=== PATIENT | male | born 1965 | race Caucasian/White ===

== ENCOUNTER 2018-12-17 18:24 | Inpatient (IN) | payer MEDICAID, OTHER ==
[2018-12-17] MEDS: morphine 4 MG/ML VIAL IV (18:29)
[2018-12-17] MEDS: NITROGLYCERIN 50 MG/D5W (PMX) 250 ML IV (18:29)
[2018-12-17 18:58] LABS: ADD MAN DIFF? NO
[2018-12-17 19:00] LABS: HEMOGLOBIN 12.2 g/dl (14.0-18.0); MEAN CORPUSCULAR HEMOGLOBIN 29.8 pg (29.0-33.0); MEAN CORPUSCULAR VOLUME 90.5 fl (82.0-101.0); RED BLOOD COUNT 4.09 10^6/ul (4.70-6.10); RED CELL DISTRIBUTION WIDTH 12.6 % (11.5-14.5)
[2018-12-17 19:00] LABS: WHITE BLOOD COUNT 10.1 10^3/ul (4.8-10.8)
[2018-12-17 19:01] LABS: BASOPHIL # 0.1 10^3/ul (0.0-0.1); BASOPHILS % 0.5 % (0.0-2.0); EOSINOPHILS # 0.1 10^3/ul (0.0-0.5); EOSINOPHILS % 1.2 % (0.0-7.0); LYMPHOCYTES # 1.2 10^3/ul (0.8-2.9); MEAN PLATELET VOLUME 11.1 fl (7.4-10.4); MONOCYTE # 0.6 10^3/ul (0.3-0.9); NEUTROPHILS % 79.8 % (39.0-77.0); PLATELET COUNT 207 10^3/UL (140-415)
[2018-12-17] MEDS: FUROSEMIDE 40 MG INJ IV (19:01)
[2018-12-17] MEDS: ONDANSETRON 4 MG INJ IV (19:02)
[2018-12-17 19:15] LABS: INR 0.99; PROTIME 13.2 Sec (11.9-14.9)
[2018-12-17 19:16] LABS: PARTIAL THROMBOPLASTIN TIME 27.9 Sec (23.0-35.0)
[2018-12-17 19:22] LABS: ANION GAP 14 (5-13); BLOOD UREA NITROGEN 15 mg/dl (7-20); CALCIUM 9.8 mg/dl (8.4-10.2); CARBON DIOXIDE 24 mmol/L (21-31); CHLORIDE 100 mmol/L (97-110); CREATININE 0.69 mg/dl (0.61-1.24); Estimated GFR > 60 mL/min (>60); GLUCOSE 168 mg/dl (70-220); POTASSIUM 4.5 mmol/L (3.5-5.1); SODIUM 138 mmol/L (135-144)
[2018-12-17 19:31] LABS: B-TYPE NATRIURETIC PEPTIDE 582 PG/ML (0-125)
[2018-12-17 19:35] LABS: TROPONIN-I < 0.012 ng/ml (0.000-0.120)
[2018-12-17] MEDS: ASPIRIN 81 MG TAB PO (19:48)
[2018-12-17 20:32] LABS: AADO2 Arterial 75.2 mmHg (7.0-24.0); Allen Test ACCEPTAB; Arterial Base Excess 1.7 mmol/L (-3.0-3); Arterial Blood Gas Oxygen Sat 98.6 mmHG (95.0-98.0); Arterial COHb 0 % (0.0-3.0); Arterial Fraction of Oxyhgb 98.4 % (93.0-99.0); Arterial HCO3 26.4 mmol/L (22.0-26.0); Arterial MetHb 0.2 % (0.0-1.5); Arterial pCO2 41.9 mmhg (35-45); Blood Gas IEPAP 15/5; MODE MASK - BIPAP; Site Left Radial
[2018-12-17] MEDS ORDERED: ACETAMINOPHEN 325 MG TAB PO ×2 (21:00)
[2018-12-17] MEDS ORDERED: BISACODYL (EC) 5 MG TAB PO (21:00)
[2018-12-17] MEDS ORDERED: NITROGLYCERIN (SL) 0.4 MG TAB SL (21:00)
[2018-12-17] MEDS ORDERED: ONDANSETRON 4 MG INJ IV ×2 (21:00)
[2018-12-17] MEDS ORDERED: NACL 0.9% 3 ML SYG IV (21:00)
[2018-12-17] MEDS ORDERED: DOCUSATE SODIUM 100 MG CAP PO (21:00)
[2018-12-18] MEDS: ENOXAPARIN 40 MG/0.4 ML SYG SC (00:51)
[2018-12-18 01:08] LABS: CREATINE KINASE 181 IU/L (23-200)
[2018-12-18 01:20] LABS: CK INDEX 2.7
[2018-12-18 01:21] LABS: CK-MB 4.96 ng/ml (0.0-2.4)
[2018-12-18 01:24] LABS: TROPONIN-I 0.998 ng/ml (0.000-0.120)
[2018-12-18] MEDS: ACCU-CHEK XX (02:00)
[2018-12-18] MEDS ORDERED: ENOXAPARIN 60 MG/0.6 ML SYG SC ×2 (02:00→14:00)
[2018-12-18] MEDS ORDERED: ENOXAPARIN 100 MG/ML SYG SC (02:00)
[2018-12-18] MEDS ORDERED: GLUCOSE GEL 15 GRAM TUBE BUCCAL (02:30)
[2018-12-18] MEDS ORDERED: DEXTROSE 50% 50 ML SYRINGE IV ×2 (02:30)
[2018-12-18] MEDS ORDERED: GLUCAGON 1 MG INJ IM (02:30)
[2018-12-18] MEDS ORDERED: GLUCOSE GEL 15 GRAM TUBE PO ×2 (02:30)
[2018-12-18] MEDS: ENOXAPARIN 80 MG/0.8 ML SYG SC (03:08)
[2018-12-18 07:01] LABS: ADD MAN DIFF? NO
[2018-12-18 07:06] LABS: BASOPHIL # 0.1 10^3/ul (0.0-0.1); BASOPHILS % 0.9 % (0.0-2.0); EOSINOPHILS % 0.7 % (0.0-7.0); HEMATOCRIT 34.2 % (42.0-52.0); HEMOGLOBIN 11.4 g/dl (14.0-18.0); LYMPHOCYTES # 1.3 10^3/ul (0.8-2.9); LYMPHOCYTES % 23.1 % (15.0-51.0); MEAN CORPUSCULAR HEMOGLOBIN 29.9 pg (29.0-33.0); MEAN CORPUSCULAR HGB CONC 33.3 g/dl (32.0-37.0); MEAN CORPUSCULAR VOLUME 89.8 fl (82.0-101.0); MEAN PLATELET VOLUME 11.3 fl (7.4-10.4); MONOCYTE # 0.5 10^3/ul (0.3-0.9); MONOCYTES % 8.2 % (0.0-11.0); NEUTROPHIL # 3.7 10^3/ul (1.6-7.5); NEUTROPHILS % 66.9 % (39.0-77.0); PLATELET COUNT 194 10^3/UL (140-415); RED BLOOD COUNT 3.81 10^6/ul (4.70-6.10); RED CELL DISTRIBUTION WIDTH 12.6 % (11.5-14.5)
[2018-12-18 07:06] LABS: WHITE BLOOD COUNT 5.5 10^3/ul (4.8-10.8)
[2018-12-18 07:37] LABS: CREATINE KINASE 173 IU/L (23-200)
[2018-12-18 07:44] LABS: ALANINE AMINOTRANSFERASE 20 IU/L (13-69); ALBUMIN 4.1 g/dl (3.3-4.9); ALBUMIN/GLOBULIN RATIO 1.36; ALKALINE PHOSPHATASE 59 IU/L (42-121); ANION GAP 10 (5-13); ASPARTATE AMINO TRANSFERASE 27 IU/L (15-46); BILIRUBIN,INDIRECT 0.4 mg/dl (0-1.1); BILIRUBIN,TOTAL 0.4 mg/dl (0.2-1.3); BLOOD UREA NITROGEN 13 mg/dl (7-20); CALCIUM 9.8 mg/dl (8.4-10.2); CARBON DIOXIDE 27 mmol/L (21-31); CHLORIDE 102 mmol/L (97-110); CHOL/HDL RATIO 2.9 RATIO; CHOLESTEROL 90 mg/dl (100-200); CREATININE 0.66 mg/dl (0.61-1.24); Estimated GFR > 60 mL/min (>60); GLUCOSE 116 mg/dl (70-220); HDL CHOLESTEROL 31 mg/dl (28-71); LDL CHOLESTEROL,CALCULATED 42 mg/dl; MAGNESIUM 1.7 mg/dl (1.7-2.5); POTASSIUM 3.8 mmol/L (3.5-5.1); SODIUM 139 mmol/L (135-144); TOTAL PROTEIN 7.1 g/dl (6.1-8.1); TRIGLYCERIDES 85 mg/dl (0-149)
[2018-12-18 07:45] LABS: CK INDEX 2.6
[2018-12-18 07:52] LABS: CK-MB 4.46 ng/ml (0.0-2.4)
[2018-12-18] MEDS: INSULIN ASPART [NOVOLOG] 3 ML PEN SC ×4 (07:55→20:57)
[2018-12-18 08:46] LABS: HEMOGLOBIN A1C 6.2 % (0-5.9)
[2018-12-18] MEDS ORDERED: VALSARTAN 160 MG PO (09:00)
[2018-12-18] MEDS: AMLODIPINE 10 MG TAB PO (09:00)
[2018-12-18] MEDS: RANOLAZINE (SR) 500 MG TAB PO ×2 (09:46→21:03)
[2018-12-18] MEDS: ASPIRIN (EC) 81 MG TAB PO (09:46)
[2018-12-18] MEDS: CLOPIDOGREL 75 MG TAB PO ×2 (10:33→21:04)
[2018-12-18] MEDS: LOSARTAN 50 MG TAB PO (12:00)
[2018-12-18] MEDS ORDERED: VERAPAMIL 5 MG INJ ×2 (17:02→17:57)
[2018-12-18] MEDS ORDERED: IODIXANOL LOCM 100 ML BTL ×3 (17:02→18:14)
[2018-12-18] MEDS ORDERED: LIDOCAINE 1% (MDV) 20 ML INJ (17:02)
[2018-12-18] MEDS ORDERED: MIDAZOLAM 1 MG/ML 2 ML INJ ×2 (17:02→17:13)
[2018-12-18] MEDS ORDERED: HEPARIN 1000 UNITS/ML 10 ML INJ (17:02)
[2018-12-18] MEDS ORDERED: NITROGLYCERIN (IC) 100 MCG/ML INJ (17:14)
[2018-12-18] MEDS ORDERED: FENTAnyl 50 MCG/ML VIAL (17:14)
[2018-12-18] MEDS ORDERED: IOHEXOL 350MG/ML 50 ML BTL (18:15)
[2018-12-18] MEDS ORDERED: CLOPIDOGREL 300 MG TAB (18:26)
[2018-12-18] MEDS: SOD CHLORIDE 0.9% 1,000 ML IV (19:57)
[2018-12-18] MEDS: ATORVASTATIN 80 MG TAB PO (21:03)
[2018-12-19] MEDS: ACCU-CHEK XX (01:28)
[2018-12-19] MEDS: INSULIN ASPART [NOVOLOG] 3 ML PEN SC ×5 (07:47→21:12)
[2018-12-19 08:25] LABS: ADD MAN DIFF? NO
[2018-12-19 08:28] LABS: BASOPHIL # 0.1 10^3/ul (0.0-0.1); BASOPHILS % 1.1 % (0.0-2.0); EOSINOPHILS # 0.1 10^3/ul (0.0-0.5); EOSINOPHILS % 1.3 % (0.0-7.0); HEMATOCRIT 32.6 % (42.0-52.0); HEMOGLOBIN 10.7 g/dl (14.0-18.0); LYMPHOCYTES # 1.1 10^3/ul (0.8-2.9); MEAN CORPUSCULAR HEMOGLOBIN 29.9 pg (29.0-33.0); MEAN CORPUSCULAR HGB CONC 32.8 g/dl (32.0-37.0); MEAN CORPUSCULAR VOLUME 91.1 fl (82.0-101.0); MEAN PLATELET VOLUME 11.1 fl (7.4-10.4); MONOCYTE # 0.5 10^3/ul (0.3-0.9); MONOCYTES % 9.8 % (0.0-11.0); NEUTROPHIL # 3.8 10^3/ul (1.6-7.5); NEUTROPHILS % 68.4 % (39.0-77.0); PLATELET COUNT 165 10^3/UL (140-415); RED BLOOD COUNT 3.58 10^6/ul (4.70-6.10); RED CELL DISTRIBUTION WIDTH 12.8 % (11.5-14.5)
[2018-12-19 08:28] LABS: WHITE BLOOD COUNT 5.5 10^3/ul (4.8-10.8)
[2018-12-19] MEDS: LOSARTAN 50 MG TAB PO (08:29)
[2018-12-19] MEDS: ASPIRIN (EC) 81 MG TAB PO (08:29)
[2018-12-19] MEDS: CLOPIDOGREL 75 MG TAB PO ×2 (08:30→21:06)
[2018-12-19] MEDS: AMLODIPINE 10 MG TAB PO (08:30)
[2018-12-19] MEDS: RANOLAZINE (SR) 500 MG TAB PO ×2 (08:30→21:06)
[2018-12-19 09:02] LABS: ANION GAP 8 (5-13); BLOOD UREA NITROGEN 12 mg/dl (7-20); CALCIUM 9.1 mg/dl (8.4-10.2); CARBON DIOXIDE 26 mmol/L (21-31); CHLORIDE 106 mmol/L (97-110); CREATININE 0.69 mg/dl (0.61-1.24); Estimated GFR > 60 mL/min (>60); GLUCOSE 154 mg/dl (70-220); POTASSIUM 4.1 mmol/L (3.5-5.1); SODIUM 140 mmol/L (135-144)
[2018-12-19] MEDS: ATORVASTATIN 80 MG TAB PO (21:06)
[2018-12-20] MEDS: ACCU-CHEK XX (02:00)
[2018-12-20 06:12] LABS: ADD MAN DIFF? NO
[2018-12-20 06:14] LABS: BASOPHILS % 0.6 % (0.0-2.0); EOSINOPHILS # 0.1 10^3/ul (0.0-0.5); HEMATOCRIT 32.8 % (42.0-52.0); LYMPHOCYTES # 1.3 10^3/ul (0.8-2.9); LYMPHOCYTES % 20.9 % (15.0-51.0); MEAN CORPUSCULAR HEMOGLOBIN 29.8 pg (29.0-33.0); MEAN CORPUSCULAR HGB CONC 33.5 g/dl (32.0-37.0); MEAN CORPUSCULAR VOLUME 88.9 fl (82.0-101.0); MEAN PLATELET VOLUME 10.9 fl (7.4-10.4); MONOCYTE # 0.7 10^3/ul (0.3-0.9); MONOCYTES % 10.7 % (0.0-11.0); NEUTROPHIL # 4.2 10^3/ul (1.6-7.5); NEUTROPHILS % 65.6 % (39.0-77.0); PLATELET COUNT 181 10^3/UL (140-415); RED BLOOD COUNT 3.69 10^6/ul (4.70-6.10); RED CELL DISTRIBUTION WIDTH 12.9 % (11.5-14.5)
[2018-12-20 06:14] LABS: WHITE BLOOD COUNT 6.4 10^3/ul (4.8-10.8)
[2018-12-20 06:59] LABS: B-TYPE NATRIURETIC PEPTIDE 676 PG/ML (0-125)
[2018-12-20 07:05] LABS: ALANINE AMINOTRANSFERASE 15 IU/L (13-69); ALBUMIN 4.2 g/dl (3.3-4.9); ALBUMIN/GLOBULIN RATIO 1.35; ALKALINE PHOSPHATASE 50 IU/L (42-121); ANION GAP 10 (5-13); ASPARTATE AMINO TRANSFERASE 28 IU/L (15-46); BILIRUBIN,INDIRECT 0.4 mg/dl (0-1.1); BILIRUBIN,TOTAL 0.4 mg/dl (0.2-1.3); BLOOD UREA NITROGEN 15 mg/dl (7-20); CALCIUM 9.5 mg/dl (8.4-10.2); CARBON DIOXIDE 24 mmol/L (21-31); CHLORIDE 106 mmol/L (97-110); Estimated GFR > 60 mL/min (>60); GLUCOSE 181 mg/dl (70-220); POTASSIUM 4.2 mmol/L (3.5-5.1); SODIUM 140 mmol/L (135-144); TOTAL PROTEIN 7.3 g/dl (6.1-8.1)
[2018-12-20] MEDS: INSULIN ASPART [NOVOLOG] 3 ML PEN SC ×7 (07:55→21:00)
[2018-12-20] MEDS: ASPIRIN (EC) 81 MG TAB PO (08:36)
[2018-12-20] MEDS: AMLODIPINE 5 MG TAB PO (08:37)
[2018-12-20] MEDS: LOSARTAN 50 MG TAB PO (08:37)
[2018-12-20] MEDS: CLOPIDOGREL 75 MG TAB PO ×2 (08:38→21:17)
[2018-12-20] MEDS: RANOLAZINE (SR) 500 MG TAB PO ×2 (08:38→21:18)
[2018-12-20] MEDS: INSULIN GLARGINE [LANTus] (100 UNITS/ML) SYG SC (08:47)
[2018-12-20] MEDS: ENOXAPARIN 40 MG/0.4 ML SYG SC (15:32)
[2018-12-20] MEDS: ATORVASTATIN 80 MG TAB PO (21:18)
[2018-12-21] MEDS: ACCU-CHEK XX (02:00)
[2018-12-21 06:26] LABS: ADD MAN DIFF? NO
[2018-12-21 06:29] LABS: BASOPHIL # 0.1 10^3/ul (0.0-0.1); BASOPHILS % 0.8 % (0.0-2.0); EOSINOPHILS # 0.1 10^3/ul (0.0-0.5); EOSINOPHILS % 1.8 % (0.0-7.0); HEMATOCRIT 31.6 % (42.0-52.0); HEMOGLOBIN 10.5 g/dl (14.0-18.0); LYMPHOCYTES # 1.1 10^3/ul (0.8-2.9); LYMPHOCYTES % 18.5 % (15.0-51.0); MEAN CORPUSCULAR HEMOGLOBIN 29.5 pg (29.0-33.0); MEAN CORPUSCULAR HGB CONC 33.2 g/dl (32.0-37.0); MEAN CORPUSCULAR VOLUME 88.8 fl (82.0-101.0); MONOCYTE # 0.6 10^3/ul (0.3-0.9); MONOCYTES % 10.1 % (0.0-11.0); NEUTROPHIL # 4.1 10^3/ul (1.6-7.5); NEUTROPHILS % 68.6 % (39.0-77.0); PLATELET COUNT 170 10^3/UL (140-415); RED BLOOD COUNT 3.56 10^6/ul (4.70-6.10); RED CELL DISTRIBUTION WIDTH 12.8 % (11.5-14.5)
[2018-12-21 06:55] LABS: INR 0.94; PROTIME 12.7 Sec (11.9-14.9)
[2018-12-21 06:57] LABS: CREATINE KINASE 146 IU/L (23-200)
[2018-12-21 07:02] LABS: ALANINE AMINOTRANSFERASE 19 IU/L (13-69); ALBUMIN 3.9 g/dl (3.3-4.9); ALBUMIN/GLOBULIN RATIO 1.34; ALKALINE PHOSPHATASE 50 IU/L (42-121); ANION GAP 10 (5-13); ASPARTATE AMINO TRANSFERASE 43 IU/L (15-46); BILIRUBIN,INDIRECT 0.4 mg/dl (0-1.1); BILIRUBIN,TOTAL 0.4 mg/dl (0.2-1.3); BLOOD UREA NITROGEN 23 mg/dl (7-20); CALCIUM 9.5 mg/dl (8.4-10.2); CARBON DIOXIDE 26 mmol/L (21-31); CHLORIDE 105 mmol/L (97-110); CREATININE 1.21 mg/dl (0.61-1.24); Estimated GFR > 60 mL/min (>60); GLUCOSE 191 mg/dl (70-220); MAGNESIUM 2.1 mg/dl (1.7-2.5); POTASSIUM 4.3 mmol/L (3.5-5.1); SODIUM 141 mmol/L (135-144); TOTAL PROTEIN 6.8 g/dl (6.1-8.1)
[2018-12-21 07:10] LABS: CK INDEX 1.3; CK-MB 1.96 ng/ml (0.0-2.4); TROPONIN-I 0.883 ng/ml (0.000-0.120)
[2018-12-21] MEDS ORDERED: LIDOCAINE 1% (MDV) 20 ML INJ (07:10)
[2018-12-21] MEDS ORDERED: IODIXANOL LOCM 100 ML BTL (07:10)
[2018-12-21] MEDS: INSULIN ASPART [NOVOLOG] 3 ML PEN SC ×7 (07:55→20:37)
[2018-12-21] MEDS: INSULIN GLARGINE [LANTus] (100 UNITS/ML) SYG SC (08:00)
[2018-12-21] MEDS ORDERED: FENTAnyl 50 MCG/ML VIAL (08:46)
[2018-12-21] MEDS ORDERED: MIDAZOLAM 1 MG/ML 2 ML INJ (08:46)
[2018-12-21] MEDS ORDERED: NITROGLYCERIN (IC) 100 MCG/ML INJ (08:54)
[2018-12-21] MEDS: LOSARTAN 50 MG TAB PO (09:00)
[2018-12-21] MEDS ORDERED: BIVALIRUDIN 250MG /NS 50 ML 50 ML IVPB ×2 (09:22→09:43)
[2018-12-21] MEDS: SOD CHLORIDE 0.9% 1,000 ML IV (09:56)
[2018-12-21] MEDS ORDERED: OXYCODONE/ACETAMINOPHEN (5/325) TAB PO ×2 (10:00)
[2018-12-21] MEDS ORDERED: morphine 2 MG INJ IV (10:00)
[2018-12-21] MEDS: ASPIRIN (EC) 81 MG TAB PO (12:31)
[2018-12-21] MEDS: CLOPIDOGREL 75 MG TAB PO ×2 (12:32→20:35)
[2018-12-21] MEDS: RANOLAZINE (SR) 500 MG TAB PO ×2 (12:32→20:35)
[2018-12-21] MEDS: AMLODIPINE 5 MG TAB PO (12:32)
[2018-12-21] MEDS: ATORVASTATIN 80 MG TAB PO (20:35)
[2018-12-22] MEDS: ACCU-CHEK XX (01:28)
[2018-12-22] MEDS: RANOLAZINE (SR) 500 MG TAB PO ×2 (08:20→20:59)
[2018-12-22] MEDS: CLOPIDOGREL 75 MG TAB PO ×2 (08:20→20:59)
[2018-12-22] MEDS: AMLODIPINE 5 MG TAB PO (08:21)
[2018-12-22] MEDS: ASPIRIN (EC) 81 MG TAB PO (08:21)
[2018-12-22 08:27] LABS: ADD MAN DIFF? NO
[2018-12-22] MEDS: INSULIN GLARGINE [LANTus] (100 UNITS/ML) SYG SC (08:28)
[2018-12-22] MEDS: INSULIN ASPART [NOVOLOG] 3 ML PEN SC ×7 (08:28→20:56)
[2018-12-22 08:32] LABS: WHITE BLOOD COUNT 6.4 10^3/ul (4.8-10.8)
[2018-12-22 08:32] LABS: BASOPHILS % 0.6 % (0.0-2.0); EOSINOPHILS # 0.1 10^3/ul (0.0-0.5); EOSINOPHILS % 1.7 % (0.0-7.0); HEMATOCRIT 31.5 % (42.0-52.0); HEMOGLOBIN 10.4 g/dl (14.0-18.0); LYMPHOCYTES % 16.3 % (15.0-51.0); MEAN CORPUSCULAR HEMOGLOBIN 29.6 pg (29.0-33.0); MEAN CORPUSCULAR VOLUME 89.7 fl (82.0-101.0); MEAN PLATELET VOLUME 11.5 fl (7.4-10.4); MONOCYTE # 0.5 10^3/ul (0.3-0.9); MONOCYTES % 8.3 % (0.0-11.0); NEUTROPHIL # 4.7 10^3/ul (1.6-7.5); NEUTROPHILS % 72.9 % (39.0-77.0); PLATELET COUNT 183 10^3/UL (140-415); RED BLOOD COUNT 3.51 10^6/ul (4.70-6.10)
[2018-12-22 08:45] LABS: ALANINE AMINOTRANSFERASE 22 IU/L (13-69); ALBUMIN 3.9 g/dl (3.3-4.9); ALBUMIN/GLOBULIN RATIO 1.25; ALKALINE PHOSPHATASE 58 IU/L (42-121); ANION GAP 9 (5-13); ASPARTATE AMINO TRANSFERASE 21 IU/L (15-46); BILIRUBIN,INDIRECT 0.5 mg/dl (0-1.1); BILIRUBIN,TOTAL 0.5 mg/dl (0.2-1.3); BLOOD UREA NITROGEN 18 mg/dl (7-20); CALCIUM 9.6 mg/dl (8.4-10.2); CARBON DIOXIDE 26 mmol/L (21-31); CHLORIDE 104 mmol/L (97-110); CREATININE 1.01 mg/dl (0.61-1.24); Estimated GFR > 60 mL/min (>60); GLUCOSE 172 mg/dl (70-220); SODIUM 139 mmol/L (135-144)
[2018-12-22] MEDS: ATORVASTATIN 80 MG TAB PO (20:59)
[2018-12-23] MEDS: ACCU-CHEK XX (03:00)
[2018-12-23] MEDS: CLOPIDOGREL 75 MG TAB PO (08:29)
[2018-12-23] MEDS: LOSARTAN 50 MG TAB PO (08:29)
[2018-12-23] MEDS: AMLODIPINE 5 MG TAB PO (08:29)
[2018-12-23] MEDS: ASPIRIN (EC) 81 MG TAB PO (08:29)
[2018-12-23] MEDS: RANOLAZINE (SR) 500 MG TAB PO (08:29)
[2018-12-23] MEDS: INSULIN ASPART [NOVOLOG] 3 ML PEN SC ×2 (08:36)
[2018-12-23] MEDS: INSULIN GLARGINE [LANTus] (100 UNITS/ML) SYG SC (08:36)
[2018-12-23] MEDS ORDERED: AMLODIPINE 5 MG TAB PO (09:00)
== END 2018-12-23 12:45 | disposition home or self-care (01) | DRG 246 ==
LOC: TEL 12-22 15:21 → E/R 18:24 → TEL 12-18 17:59
PROC: 027035Z Dilation of Coronary Artery, One Artery with Two Drug-eluting Intraluminal Devices, Percutaneous Approach (ICD-10-PCS; 2018-12-18 16:30)
PROC: 4A023N7 Measurement of Cardiac Sampling and Pressure, Left Heart, Percutaneous Approach (ICD-10-PCS; 2018-12-18 16:30)
PROC: B211YZZ Fluoroscopy of Multiple Coronary Arteries using Other Contrast (ICD-10-PCS; 2018-12-18 16:30)
PROC: 027236Z Dilation of Coronary Artery, Three Arteries with Three Drug-eluting Intraluminal Devices, Percutaneous Approach (ICD-10-PCS; principal; 2018-12-18 16:48)
PROC: 02703ZZ Dilation of Coronary Artery, One Artery, Percutaneous Approach (ICD-10-PCS; 2018-12-18 16:48)
PROC: 4A023N7 Measurement of Cardiac Sampling and Pressure, Left Heart, Percutaneous Approach (ICD-10-PCS; 2018-12-18 16:48)
PROC: B211YZZ Fluoroscopy of Multiple Coronary Arteries using Other Contrast (ICD-10-PCS; 2018-12-18 16:48)
PROC: 5A09357 Assistance with Respiratory Ventilation, Less than 24 Consecutive Hours, Continuous Positive Airway Pressure (ICD-10-PCS; 2018-12-18 16:48)
DX: I21.4 Non-ST elevation (NSTEMI) myocardial infarction (principal); J96.01 Acute respiratory failure with hypoxia; I50.33 Acute on chronic diastolic (congestive) heart failure; I16.1 Hypertensive emergency; T82.855A Stenosis of coronary artery stent, initial encounter; I11.0 Hypertensive heart disease with heart failure; E11.8 Type 2 diabetes mellitus with unspecified complications; E78.5 Hyperlipidemia, unspecified; E66.01 Morbid (severe) obesity due to excess calories; I25.10 Atherosclerotic heart disease of native coronary artery without angina pectoris; E11.51 Type 2 diabetes mellitus with diabetic peripheral angiopathy without gangrene; Y83.8 Other surgical procedures as the cause of abnormal reaction of the patient, or of later complication, without mention of misadventure at the time of the procedure; Z89.611 Acquired absence of right leg above knee; Z89.421 Acquired absence of other right toe(s); Z68.35 Body mass index [BMI] 35.0-35.9, adult
CPT/HCPCS: 36600; 71045; 80048; 80053; 80061; 82550; 82553; 82803; 82962; 83036; 83735; 83880; 84443; 84484; 85025; 85610; 85730; 92928; 92929; 93005; 93306; 93458; 94660; 96374; 96375; 99291-25